=== PATIENT | male | born 1960 | race Caucasian/White ===

== ENCOUNTER → 2016-11-13 | Outpatient (CLI) | payer OTHER | LOC: CIMAGING 11:04 | PROVIDERS: ATTEND Internal Medicine | DX: Z82.71 Family history of polycystic kidney (principal) | CPT/HCPCS: 76770-PO ==

== ENCOUNTER → 2017-12-28 | Outpatient (CLI) | payer BC | LOC: CIMAGING 14:59 | PROVIDERS: ATTEND Internal Medicine | DX: M79.89 Other specified soft tissue disorders (principal) | CPT/HCPCS: 73560-PO; 93971-PO ==